=== PATIENT | female | born 1940 | race Caucasian/White ===

== ENCOUNTER 2017-07-22 10:57 | Inpatient (IN) | payer OTHER ==
[~2017-07-22] VITALS: Ht 157.5 cm; Wt 120.3 kg
[~2017-07-22 10:57] MED LIST: COLACE100 MG PO; COUMADIN 5 MG TA5 MG PO; JOINT FLEX PO; MACROBID100 MG PO; MIRALAX17 GM PO; MYCOSTATIN POWD15 GM TOP; NAMENDA10 MG PO; NATURAL IRON65 MG PO; PERCOCET 325 MG1 TA2 PO; SENNA-PLUS 50 M1 TAB PO
--- NOTE | 2017-07-22 11:41 | ED DYSPNEA/ASTHMA COMPLAINT ---
History of Present Illness General Chief Complaint: Dyspnea (COPD, CHF, Other) Stated Complaint: SOB,BACK PAIN,SWOLLE LEGS/FEET Triage Note: PT TO ED WITH C/O SOB AND SWOLLEN "MORE THAN NORMAL", PER FAMILY UNABLE TO PUT PT'S SHOES ON TODAY "HAD APPT WITH DR GONZALEZ TODAY, UNABLE TO MAKE IT". EKG DONE PRIOR TO TRIAGE. (Kiesha WADDELL,Eryn) General Source: patient, family Exam Limitations: clinical condition Vital Signs & Intake/Output Vital Signs & Intake/Output Vital Signs Date Time Temp Pulse Resp B/P B/P Pulse O2 O2 Flow FiO2 Mean Ox Delivery Rate 07/23 0549 97.8 92 20 128/76 93 Nasal 2.0L Cannula 07/23 0245 82 20 132/72 93 Nasal 2.0L Cannula 07/22 2307 97.8 99 22 120/65 91 Nasal 4.0L Cannula 07/22 2307 96 Room Air 07/22 1654 98.2 79 20 131/85 97 07/22 1401 97.2 88 20 110/62 98 Room Air 07/22 1329 99 Room Air 07/22 1116 96.7 94 24 104/61 99 Room Air Room Air ED Intake and Output 07/23 0000 07/22 1200 Intake Total 300 Output Total Balance 300 Intake, Oral 300 Patient 260 lb Weight Weight Reported by Patient Measurement Method Allergies Coded Allergies: No Known Allergies (07/22/17) Reconcile Medications Memantine HCl (Namenda) 10 MG TABLET 1 TAB PO BID DEMENTIA (Reported) Triage Nurses Notes Reviewed? yes Onset: Last week Duration: day(s): Severity: moderate Activities at Onset: none Prior Episodes/Possible Cause: no prior episodes, unknown cause Modifying Factors: Worsens With: movement. Associated Symptoms: cough, edema HPI: 76yoF w/ hx of OA and memory loss here with new onset dyspnea and leg swelling. According to patient, in the past 3days, she had been having difficulty with exertion. She runs out of breath when she ambulates a few feet. Prior to this, she has been having gradual swelling of her legs. She is now using a wheel chair for ambulation. At baseline, she had no issues with exertion and abulation. This is associated with new non-productive cough. She denies any trauma, hx of COPD, lung or cardiac issues in the past. She also denies N/V, fevers, chills or wheezing. Her only medication is Memantidine. She was otherwise independent with intact ADLs, living alone. She's had knee surgery in the past but she's able to ambulate She also endorses mild back pain which she attributes to sitting in the wheel chair. (Pool Salazar) Past History Travel History Traveled to [place] past 21 day No Medical History Neurological: Alzheimer's disease EENT: NONE Cardiovascular: NONE Respiratory: NONE Gastrointestinal: NONE Hepatic: NONE Renal: urinary incontinence Musculoskeletal: degen joint disease, osteoarthritis Psychiatric: NONE Endocrine: NONE Blood Disorders: NONE Cancer(s): NONE CLINICAL NURSING COORDINATOR/Reproductive: NONE History of MRSA: No History of VRE: No History of CDIFF: No Influenza Vaccine: 03/05/15 Surgical History Surgical History: non-contributory Psychosocial History Who do you live with Spouse Services at Home None What is your primary language Kazakh Tobacco Use: Never used ETOH Use: denies use Illicit Drug Use: denies illicit drug use Family History Hx Contributory? No (Eryn Pop MD) Travel History Traveled to [place] past 21 day No Medical History Any Pertinent Medical History? see below for history Neurological: dementia EENT: NONE Cardiovascular: NONE Respiratory: NONE Gastrointestinal: NONE Hepatic: NONE Renal: NONE Psychiatric: NONE Endocrine: NONE Surgical History Surgical History: non-contributory (Pool Salazar) Review of Systems Review of Systems GI: Denies: abdominal pain. Hematologic/Endocrine: Denies: bruising, bleeding. Immunologic/Allergic: Denies: splenectomy. (Eryn Pop MD) Review of Systems Constitutional: Reports: see HPI, weakness. EENTM: Reports: no symptoms. Respiratory: Reports: no symptoms. Cardiovascular: Reports: no symptoms. Genitourinary: Reports: no symptoms. Musculoskeletal: Reports: see HPI. Skin: Reports: no symptoms. Neurological/Psychological: Reports: no symptoms. (Subha STUDENTPool) Physical Exam Physical Exam General Appearance: moderate distress, obese Ears, Nose, Throat: normal pharynx, hearing grossly normal Peripheral Pulses: 2+ radial (R), 2+ radial (L) Rectal: heme negative stool Extremities: 2+ BILATERAL PITTING EDEMA Core Measures ACS in differential dx? Yes CVA/TIA Diagnosis No Sepsis Present: No Sepsis Focused Exam Completed? No (Eryn Pop MD) Physical Exam General Appearance: well developed/nourished, alert, awake, anxious, mild distress Head: atraumatic Eyes: Bilateral: PERRL, EOMI. Neck: normal inspection, supple Respiratory: decreased breath sounds Cardiovascular: regular rate/rhythm, normal peripheral pulses Gastrointestinal: normal bowel sounds, soft Extremities: pedal edema Neurologic/Psych: awake, alert, oriented x 3, normal mood/affect Skin: intact (Opare-Lashay STUDENT,Pool) Progress Differential Diagnosis: AMI, unstable angina, DIASTOLIC DYSFUNCTION Diagnostic Imaging: Viewed by Me: Radiology Read, Ultrasound. Discussed w/RAD: Radiology Read, Ultrasound. CXR Impression: PATIENT: LOIS LOCO PRESENT AGE: 76 PATIENT ACCOUNT NO: [id number] : 38 LOCATION: [facility] ORDERING PHYSICIAN: Eryn Pop MD SERVICE DATE: 07/22/17-1212 EXAM TYPE: RAD - XRY -PORTABLE CHEST XRAY EXAMINATION: XR PORTABLE CHEST CLINICAL INFORMATION: 76- year-old female patient with dyspnea on exertion. COMPARISON: Portable chest x- ray on 04/18/2015. (Normal). TECHNIQUE: Portable AP semierect view of the chest was obtained. FINDINGS: No significant abnormality is noted involving the heart, lungs, mediastinum, bony thorax or soft tissues. IMPRESSION: No evidence of congestive heart failure. DICTATED BY: Rj Alcantar MD DATE/TIME DICTATED: 07/22/171337 VENEER TRIMMER:KIANNA DATE/TIME TRANSCRIBED:07/22/171337 CONFIDENTIAL, DO NOT COPY WITHOUT APPROPRIATE AUTHORIZATION. <Electronically signed in Other Vendor System> SIGNED BY: Rj Alcantar MD 07/22/17 1343 Hand-Off Endorsed To: Darío Zarate MD Endorsed Time: 1600 Pending: other (V/Q), ultrasound (Eryn Pop MD) Differential Diagnosis: asthma, CHF, COPD, pulmonary embolism, pneumonia Plan of Care: Orders Procedure Date/time Status Regular Diet 07/23 B Active PARTIAL THROMBOPLASTIN TIME 07/23 1630 Active Change service to 07/23 0754 Active TROPONIN LEVEL 07/23 0600 Complete CBC WITHOUT DIFFERENTIAL 07/23 0600 Complete BASIC ELECTROLYTES PLUS BUN&CR 07/23 0600 Complete EKG 07/23 0600 Active EKG 07/23 0410 Active PARTIAL THROMBOPLASTIN TIME 07/23 0400 Complete EKG 07/23 0000 Active US-RENAL/KIDNEY 07/23 UNK Active ECHOCARDIOGRAM 07/23 UNK Active Pathway - chart 07/22 2258 Active Pathway - chart 07/22 224 Active House Staff 07/22 224 Active Code Status 07/22 2249 Active Add-on Test (ER Only) 07/22 221 Active EKG 07/22 2216 Active Intake & Output 07/22 221 Active PARTIAL THROMBOPLASTIN TIME 07/22 2158 Complete Patient Data 07/22 1937 Active Misc Message 07/22 1823 Active ED Holding Orders 07/22 1823 Active Admit to inpatient 07/22 1823 Active Vital Signs 07/22 1823 Active Code Status 07/22 1823 Complete Telemetry/Training Intern 07/22 1212 Active URINALYSIS 07/22 1212 Complete THYROID STIMULATING HORMONE 07/22 1212 Complete TROPONIN LEVEL 07/22 1212 Complete PARTIAL THROMBOPLASTIN TIME 07/22 1212 Complete PROTHROMBIN TIME 07/22 1212 Complete FREE T4 07/22 1212 Complete D-DIMER 07/22 1212 Complete COMPREHENSIVE METABOLIC PANEL 07/22 1212 Complete CBC WITHOUT DIFFERENTIAL 07/22 1212 Complete B-TYPE NATRIURETIC PEP (BNP) 07/22 1212 Complete EKG 07/22 1059 Active Current Medications Sig/Idalia Start time Last Medication Dose Stop Time Status Admin Memantine 10 MG BID 07/23 1000 AC 07/23 (Namenda) 0915 Acetaminophen 650 MG Q6P PRN 07/22 2300 AC (Tylenol) Acetaminophen 1,000 MG Q6P PRN 07/22 2300 AC (Ofirmev) Clotrimazole 1 TAYLA BID 07/22 2254 AC 07/23 (Lotrimin) 0915 Heparin Sodium 25,000 UNIT Q24H 07/22 1430 AC 07/22 (Porcine) 1656 (Heparin) Sodium Chloride 500 ML Laboratory Tests 07/23/17 0430: Anion Gap 10, Estimated GFR 40 L, BUN/Creatinine Ratio 23.1, Troponin I 0.25 *H , APTT 67 H, CBC w Diff NO MAN DIFF REQ, RBC 4.44, MCV 85.9, MCH 28.1, MCHC 32.7 L, RDW 13.5, MPV 8.7, Gran % 65.8, Lymphocytes % 26.3, Monocytes % 4.7, Eosinophils % 2.4, Basophils % 0.8, Absolute Granulocytes 7.2 H, Absolute Lymphocytes 2.9, Absolute Monocytes 0.5, Absolute Eosinophils 0.3, Absolute Basophils 0.1 07/23/17 0000: Troponin I Cancelled 07/22/17 2305: Urine Color YEL, Urine Clarity HAZY H, Urine pH 5.5, Ur Specific Polk >= 1.030, Urine Protein TRACE H, Urine Ketones TRACE H, Urine Nitrite POS H, Urine Bilirubin NEG, Urine Urobilinogen 0.2, Ur Leukocyte Esterase SMALL H, Ur Microscopic SEDIMENT EXAMINED, Urine RBC RARE, Urine WBC 10-15 H, Ur Epithelial Cells MANY H, Urine Bacteria PACKD H, Urine Mucus FEW, Urine Hemoglobin NEG, Urine Glucose NEG 07/22/17 2200: APTT 84 H 07/22/17 1308: Anion Gap 11, Estimated GFR 34 L, BUN/Creatinine Ratio 19.3, Glucose 98, Calcium 9.9, Total Bilirubin 0.6, AST 13 L, ALT 16, Alkaline Phosphatase 94, Troponin I 0.32 *H, Yhh-D-Kmeabvndnie Pept 03060 H, Total Protein 7.0, Albumin 3.8, Globulin 3.2, Albumin/Globulin Ratio 1.2, TSH 2.630, Free T4 1.76, PT 11.5, INR 1.10, APTT 31, D-Dimer High Sensitivty 2233 H, CBC w Diff MAN DIFF ORDERED, RBC 4.48, MCV 85.3, MCH 28.8, MCHC 33.8, RDW 12.9, MPV 8.3, Gran % 85.3 H, Lymphocytes % 9.2 L, Monocytes % 4.6, Eosinophils % 0.2, Basophils % 0.7, Absolute Granulocytes 10.1 H, Absolute Lymphocytes 1.1 L, Absolute Monocytes 0.5, Absolute Eosinophils 0, Absolute Basophils 0.1, Normocytic RBCs VERIFIED, Normochromic RBCs VERIFIED IV HEPARIN STARTED. ELEVATED TROPONIN, POSSIBLE PE. PENDING V/Q SCAN. WILL NEED ADMISSION TO TELEMETRY. (Kiesha WADDELL,Eryn) Patient with new onset dyspnea and leg swelling. dDx includes but not limited to CHF, COPD, thyroid, PE or liver or renal pathology. Work up will include EKG, BNP, CMP, CBC, TSH, INR, trops, dimer, urinalysis and CXR. 2:45PM Patient a little agitated complaining of leg pain. She is more short of breath and beginning to have inc WOB but satting above 96% on RA D-dimer, BNP and trops elevated and so considering to empirically start heparin therapy for presumed PE. Guaiac negative. Avoiding CT angio because elevated Cr and poor GFR. V/Q scan ordered in the interim. Morphine for pain Keep monitoring closely Initial ED EKG: normal axis, normal intervals, normal p-waves, low voltage (Opare-Lashay STUDENT,Pool) Initial ED EKG: low voltage Comments: 07/22/2017 4:54:47 PM patient signed out to me by Dr. Pop at shift change analyst. 07/22/2017 5:26:[address] Leon, radiologist,pts v/q reveals high prob. multiple upper and LLL defects. 07/22/2017 5:54:26 PM I have updated Lois and her family on test results. 07/22/2017 5:58:16 PM patient's case discussed with Dr. Goff, fish dressing machine feeder, who feels that the elevated troponin level is likely a reflection of the multiple pulmonary emboli. He recommends trending the troponin and an echocardiogram tomorrow. He agrees with heparinization for the multiple pulmonary emboli. (Tessa WADDELL,Darío May) Departure Departure Disposition: STILL A PATIENT Condition: Stable Referrals: Elaina WADDELL,Malcolm Crain (PCP/Family) Departure Forms: Customer Survey General Discharge Information Resident Co-Sign Statement Statement: ED Attending supervision documentation- [X] I saw and evaluated the patient. I have also reviewed all the pertinent lab results and diagnostic results. I agree with the findings and the plan of care as documented in the Resident's documentation. [X] I have reviewed the ED Record and agree with the Resident's documentation. [] Additions or exceptions (if any) to the Resident's note and plan are summarized below: [] (Kiesha WADDELL,Eryn) Departure Clinical Impression Primary Impression: Pulmonary emboli Qualifiers: Pulmonary embolism type: other Chronicity: acute Acute cor pulmonale presence: with acute cor pulmonale Qualified Code: I26.09 - Other pulmonary embolism with acute cor pulmonale Secondary Impressions: Elevated troponin Admission Note Spoke With: Alicia Nava MD Documentation of Exam: Documentation of any treatments & extenuating circumstances including Concerns Regarding Discharge (functional status, medication knowledge or non-compliance, living conditions, etc.) that warrant an admission rather than observation: Patient is currently suffering multiple pulmonary emboli and an elevated troponin. As a consequence of this patient has experienced shortness of breath and exertional dyspnea making her very poor candidate for outpatient management. I feel that if this were attempted, her dyspnea would be exacerbated and the exertion could potentially worsen her clinical condition. In addition to the respiratory complications, the exertion of outpatient treatment could also worse and her cardiac functioning, precipitating chest pain. I feel she now requires hospitalization for continuous cardiac monitoring for the possibility of ischemia associated dysrhythmias along with serial troponin determinations and consideration of cardiology consultation. In addition this patient requires acute heparinization followed by the initiation of an oral anticoagulant. The reason for this patient's multiple pulmonary emboli should also be pursued and treated accordingly. Hematology/oncology or vascular consultations should also be considered. This patient may also require short-term rehabilitation given the impact on her cardiovascular reserves and therefore physical therapy evaluation should be considered. I feel she will require a multiple day hospitalization. (Tessa WADDELL,Darío May) Critical Care Note Critical Care Note Critical Care Time: 30-74 min (Eryn Pop MD) Critical Care Note Critical Care Time: 30-74 min (Darío Zarate MD)
[2017-07-22] MEDS ORDERED: NAMENDA10 M2 PO (12:31)
[2017-07-22 13:19] LABS: ABSOLUTE BASOPHIL COUNT 0.1 /CUMM (0.0-0.2); ABSOLUTE EOSINOPHIL COUNT 0 /CUMM (0.0-0.7); ABSOLUTE GRANULOCYTE CT 10.1 /CUMM (1.4-6.5); ABSOLUTE LYMPH COUNT 1.1 /CUMM (1.2-3.4); ABSOLUTE MONOCYTE COUNT 0.5 /CUMM (0.10-0.60); BASOPHIL % 0.7 % (0.0-2.0); EOSINOPHIL % 0.2 % (0-5); GRANULOCYTE % 85.3 % (42.2-75.2); HEMATOCRIT 38.2 % (37-47); MEAN CORPUSCULAR HGB 28.8 PG (27.0-31.0); MEAN CORPUSCULAR HGB CONC 33.8 G/DL (33.0-37.0); MEAN CORPUSCULAR VOLUME 85.3 FL (81.0-99.0); MEAN PLATELET VOLUME 8.3 FL (7.4-10.4); PLATELET COUNT 220 /CUMM (130-400); RBC DISTRIBUTION WIDTH 12.9 % (11.5-14.5); RED BLOOD CELL CT 4.48 /CUMM (4.20-5.40); WHITE BLOOD CELL COUNT 11.8 /CUMM (4.8-10.8)
[2017-07-22 13:32] LABS: PT 11.5 SEC (9.4-12.5); PTT 31 SEC (25-37)
--- NOTE | 2017-07-22 13:43 | RADIOLOGY REPORT ---
EXAMINATION: XR PORTABLE CHEST CLINICAL INFORMATION: 76-year-old female patient with dyspnea on exertion. COMPARISON: Portable chest x-ray on 04/18/2015. (Normal). TECHNIQUE: Portable AP semierect view of the chest was obtained. FINDINGS: No significant abnormality is noted involving the heart, lungs, mediastinum, bony thorax or soft tissues. IMPRESSION: No evidence of congestive heart failure.
--- NOTE | 2017-07-22 16:21 | ULTRASOUND REPORT ---
EXAMINATION: US TRIPLEX OF LOWER EXTREMITIES, BILATERAL CLINICAL INFORMATION: Bilateral lower extremity edema. COMPARISON: None TECHNIQUE: Color-flow triplex imaging with spectral analysis and compression Doppler were performed on the lower extremities. FINDINGS: Respiratory variation, normal compression and augmented flow are noted throughout the lower extremities. The visualized common femoral vein, superficial femoral vein, profunda femoral vein, popliteal vein and midcalf peroneal and posterior tibial venous segments show no evidence of deep venous thrombosis. There is no Arriaga's cyst. IMPRESSION: Normal triplex scan without evidence of deep venous thrombosis involving the lower extremities.
--- NOTE | 2017-07-22 17:26 | NUCLEAR MEDICINE REPORT ---
EXAMINATION: PULMONARY VENTILATION PERFUSION STUDY CLINICAL INFORMATION: Shortness of breath with exertion, hypoxia, elevated d-dimer COMPARISON: No previous lung scan is available for comparison. A chest radiograph dated 07/22/2017, the same date as this lung scan, is available for comparison. TECHNIQUE: Serial gamma scintillation camera images were obtained over the posterior chest during the single breath, equilibrium rebreathing and washout of 19.3 mCi Xe 133 gas. The patient then received 3.4 mCi Tc-99m MAA intravenously and a 6-view perfusion study was performed. FINDINGS: Ventilation images: On the single breath and equilibrium images there is homogeneous distribution of gas bilaterally. During the washout phase there is no abnormal retention. Perfusion images: There is a segmental perfusion defect involving the apical segment of the right upper lobe with additional perfusion defects involving the anterior and posterior segments of the right upper lobe with almost absent perfusion to the anterior segment also. There is an additional subsegmental perfusion defect in the left upper lobe probably in the anterior segment and additional perfusion abnormalities are present in the lingula. There is also probably a segmental perfusion defect involving the anterior segment of the left lower lobe. These perfusion abnormalities are not well matched by any ventilation lower radiographic abnormalities. IMPRESSION: High probability of pulmonary embolism.
[2017-07-22 22:56] LABS: PTT 84 SEC (25-37)
--- NOTE | 2017-07-22 22:58 | History & Physical ---
KushFannie 07/22/17 2213: General Information and HPI MD Statement: I have seen and personally examined DEDRA LOCO and documented this H&P. The patient is a 76 year old F who presented with a patient stated chief complaint of [dyspnea on exertion]. Source of Information: patient, family Exam Limitations: no limitations History of Present Illness: This is a very pleasant 12-rtsv-ryfpjpzozwl obese woman who came to the emergency room complaining of shortness of breath. 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 Lives alone; she spends most of her day sitting in her recliner and according to patient at her baseline her ambulation is limited to less than a few meters and uses walker. According to patient about 3 days ago patient developed retrosternal, pleuritic, constant chest pain, without radiation to his arms or back and was associated with shortness of breath (mainly exertional); at her baseline she had bilateral lower extremity swelling and today patient noticed worsening of her bilateral lower extremity swelling. Patient denies any cough, hemoptysis, dizziness, GI/ symptoms, recent trauma to her lower extremities, any major change to her level of activity. Allergies/Medications Allergies: Coded Allergies: No Known Allergies (07/22/17) Home Med list Memantine HCl (Namenda) 10 MG TABLET 1 TAB PO BID DEMENTIA (Reported) Compliance With Home Meds: GOOD Past History Travel History Traveled to [place] past 21 day No Medical History Neurological: dementia EENT: NONE Cardiovascular: NONE Respiratory: NONE Gastrointestinal: NONE Hepatic: NONE Renal: NONE Musculoskeletal: degen joint disease, osteoarthritis Psychiatric: NONE Endocrine: NONE Blood Disorders: NONE Cancer(s): NONE HEDGE FUND PRINCIPAL/Reproductive: NONE History of MRSA: No History of VRE: No History of CDIFF: No Influenza Vaccine: 03/05/15 Surgical History Surgical History: non-contributory Past Family/Social History Psychosocial History Who Do You Live With? spouse Services at Home: None Primary Language: Estonian ETOH Use: denies use Illicit Drug Use: denies illicit drug use Functional Ability ADLs Independent: eating. Needs Assist: dressing. Unknown: toileting, bathing. Ambulation: walker Review of Systems Review of Systems Constitutional: Reports: see HPI. Cardiovascular: Reports: no symptoms. Respiratory: Reports: see HPI, short of breath. Denies: hemoptysis, orthopnea, sputum production, stridor, wheezing. GI: Reports: no symptoms. Genitourinary: Reports: no symptoms. Musculoskeletal: Reports: no symptoms. All Other Systems: Reviewed and Negative Exam & Diagnostic Data Last 24 Hrs of Vital Signs/I&O Vital Signs Date Time Temp Pulse Resp B/P B/P Pulse O2 O2 Flow FiO2 Mean Ox Delivery Rate 07/22 1654 98.2 79 20 131/85 97 07/22 1401 97.2 88 20 110/62 98 Room Air 07/22 1329 99 Room Air 07/22 1116 96.7 94 24 104/61 99 Room Air Room Air Intake & Output 07/22 1600 07/22 0800 07/22 0000 Intake Total Output Total Balance Patient 260 lb Weight Weight Reported by Patient Measurement Method Physical Exam General Appearance Alert, Oriented X3, Cooperative, Mild Distress Skin No Rashes Skin Temp/Moisture Exam: Warm/Dry HEENT MM is dry Neck Supple, No JVD, No thryomegaly, No LAD Lymphatic Axillary nl, Cervical nl Cardiovascular Normal S1, Normal S2, No Murmurs Lungs Clear to Auscultation, Normal Air Movement Abdomen Soft Neurological Normal Speech, Normal Tone Extremities +3 B/L pitting pedal edema Last 24 Hrs of Labs/Vidal: Laboratory Tests 07/22/17 2200: APTT Pending 07/22/17 1308: Anion Gap 11, Estimated GFR 34 L, BUN/Creatinine Ratio 19.3, Glucose 98, Calcium 9.9, Total Bilirubin 0.6, AST 13 L, ALT 16, Alkaline Phosphatase 94, Troponin I 0.32 *H, Qls-B-Lmdvbzbxmdr Pept 87026 H, Total Protein 7.0, Albumin 3.8, Globulin 3.2, Albumin/Globulin Ratio 1.2, TSH 2.630, Free T4 1.76, PT 11.5, INR 1.10, APTT 31, D-Dimer High Sensitivty 2233 H, CBC w Diff MAN DIFF ORDERED, RBC 4.48, MCV 85.3, MCH 28.8, MCHC 33.8, RDW 12.9, MPV 8.3, Gran % 85.3 H, Lymphocytes % 9.2 L, Monocytes % 4.6, Eosinophils % 0.2, Basophils % 0.7, Absolute Granulocytes 10.1 H, Absolute Lymphocytes 1.1 L, Absolute Monocytes 0.5, Absolute Eosinophils 0, Absolute Basophils 0.1, Normocytic RBCs VERIFIED, Normochromic RBCs VERIFIED Diagnostic Data CXR Results Normal Other Results VQ scan:anterior and posterior segments of the right upper lobe with almost absent perfusion to the anterior segment also. Highly possible PE Assessment/Plan Assessment: This is a 76-year-old morbidly obese woman with very limited ambulation and considerable Wells score presented was admitted for provoked segmental submassive pulmonary embolism; with presumably not-correctable cause. Doppler study of the lower extremities were negative for DVT ProBNP 10,600 First set of troponin 0.32 PESI score 2% chance of complication of pulmonary embolism RV/LV ratio is not available ?? Size of pulmonary artery ??? Guiac is negative List of differential diagnosis #1 provoked segmental submassive pulmonary embolism: In the setting of probable pulmonary embolism with a reversible cause chest guidelines 2017 recommends 3 months of anticoagulation. In the case of Mr. Herbert, however, her major risk factor for developing pulmonary embolism (im mobility) seems to be almost permenant, which may or may not require lifetime commitment to anticoagulation with either AVK or NOAC ( preferred). #2 worsening kidney function #3 baseline dementia #4 +/- underlying heart failure #5 superficial skin fungal infection Plan * Admit to telemetry for continuous heart monitoring * Continue heparin drip * Place cardiology consult with Dr. Hunter's group in the a.m. * Obtain echo * Any troponin and EKG rule out ACS * Hold Lasix * Nystatin powder for groin * Clotrimazole 1% twice a day on breast rash possible fungal infection * Renal ultrasound to rule out obstruction and measuring the kidney size and structure * Chem panel and CBC in the a.m. Heparin drip for anticoagulation Proper pain management FC As Ranked By This Provider Problem List: 1. Pulmonary emboli Qualifiers Pulmonary embolism type: other Chronicity: acute Acute cor pulmonale presence: with acute cor pulmonale Qualified Code: I26.09 - Other pulmonary embolism with acute cor pulmonale 2. Elevated troponin Core Measures/Misc (02/08) Acute Coronary Syndrome ACS Diagnosis: No Congestive Heart Failure Congestive Heart Failure Diagnosis No Cerebrovascular Accident CVA/TIA Diagnosis: No VTE (View Protocol) VTE Risk Factors Acute Medical Illness No Mechanical VTE Prophylaxis d/t Other No VTE Pharm Prophylaxis d/t NA PharmProphylax ordered Sepsis (View protocol) Sepsis Present: No Alicia Nava 07/23/17 0426: Attending MD Review Statement Attending Statement Attending MD Statement: examined this patient, discuss w/resident/PA/INDUSTRIAL ILLUMINATING ENGINEER, agreed w/resident/PA/INDUSTRIAL ILLUMINATING ENGINEER, discussed with family, reviewed EMR data (avail), reviewed images, amended to note Attending Assessment/Plan: CC: Shortness of breath PMH: Bilateral knee surgery, chronic knee pain, ? mild Dementia Patient came to ER for 4 to 5 day history of shortness of breath and leg swelling. According to the patient she does not walk much, most of the time, because of her chronic knee pain. Since last 3-4 days she noticed that she was getting more short of breath on exertion, substernal chest pain. Pain was mild, nonradiating, currently resolved. Her shortness of breath was progressively worsened to the level that she could not even walk a few steps. When her daughter came to check on her today, she noticed that her legs are swollen. Patient denies any fever, chills, cough, expectoration, hemoptysis, nausea, vomiting, headache, dizziness, passing out, palpitations. Her activity is limited and does not endorse any chest pain or dyspnea on exertion prior to this symptoms started. Other than chronic knee pain and mild dementia patient does not have any other symptoms. She is independent for ADLs Vitals: Afebrile, pulse in 80s, RR 24 on arrival improved to 20, blood pressure 104/61 on arrival improved to 131/85, saturating 99% on room air On exam: A O 3, cooperative, cognition intact, no acute distress, neck supple, JVD normal, no lymphadenopathy, mucosa dry, no focal neurological deficit, significant bilateral lower extremity edema, fungal rash on inguinal an inframammary folds CVS: S1-S2, RRR. RS: Clear to auscultate bilaterally. Abdomen : Soft, NT, ND, bowel sounds present. Rectal examination done, guaiac negative CXR: No evidence of congestive heart failure. DVT Doppler bilateral lower extremity: Normal triplex scan without evidence of deep venous thrombosis involving the lower extremities. Lung VQ scan: High probability of pulmonary embolism. Assessment and plan 76-year-old female with no significant past medical history except mild dementia , currently on Namenda and decreased level of activity since last 2 years, secondary to chronic knee pain presented in ER for substernal chest pain, dyspnea on exertion, bilateral lower extremity swelling since last 3-4 days, gradually worsened to the extent that she could not walk a few steps without getting short of breath. Currently patient does not have any chest pain. On examination auscultation was clear, no JVD but she has significant bilateral lower extremity edema, patient is obese and has fungal rash in inguinal an inframammary folds. Vitals were stable except mild tachypnea on arrival but labs showed mild left shift, elevated troponin, elevated proBNP, elevated d-dimer. Patient's creatinine is 1.5 and last available is 0.6 in March 2015. It's unclear whether patient has acute kidney injury or progressive CKD, she does not appear to have multiple comorbidities like hypertension, diabetes or any other chronic ailments for CKD. Given her elevated creatinine, VQ scan obtained which showed high probability of pulmonary embolism. Patient's elevated troponin could be secondary to cardiac strain secondary to PE, elevated proBNP could be secondary to similar reasons but given her extent of leg edema chronic heart failure should be ruled out. + Pulmonary embolism + Elevated troponin : Probably secondary to pulmonary embolism and cardiac strain + Suspected chronic heart failure + History of mild dementia - Admit to telemetry - Continuous telemetry monitoring - Serial troponin and ECG - Continue O2 by nasal cannula - Obtain 2-D echocardiogram in a.m. - Continue IV heparin - Cardiology consult : Patient's daughter requests Dr. Hunter's group - Renal ultrasound for elevated creatinine acute kidney injury versus chronic kidney disease - Strict I's and O's - Daily weights - Patient would benefit from diuresis once hemodynamically stable for pulmonary embolism - I called the patient's daughter Drea to discuss clinical findings, plan, and CODE STATUS: full code, as suggested by patient.
--- NOTE | 2017-07-23 04:28 | Admission Certification ---
Admission Certification Certification Statement - As attending physician, I certify that at the time of - admission, based on clinical presentation, severity of - symptoms, need for further diagnostic testing and - therapeutic interventions, and risk of adverse outcomes - without in-hospital treatment, in my clinical assessment, - this patient requires an acute hospital stay for a minimum - of two nights or longer. I have also considered psychsocial - factors such as support system, advanced age, financial - issues, cognitive issues, and failed out-patient treatments, - past re-admission history, safety of patient, and lack of - compliance as applicable. Specific rationale supporting this admission is: pulmonary embolism
[2017-07-23 04:40] LABS: ABSOLUTE BASOPHIL COUNT 0.1 /CUMM (0.0-0.2); ABSOLUTE EOSINOPHIL COUNT 0.3 /CUMM (0.0-0.7); ABSOLUTE GRANULOCYTE CT 7.2 /CUMM (1.4-6.5); ABSOLUTE LYMPH COUNT 2.9 /CUMM (1.2-3.4); ABSOLUTE MONOCYTE COUNT 0.5 /CUMM (0.10-0.60); BASOPHIL % 0.8 % (0.0-2.0); EOSINOPHIL % 2.4 % (0-5); GRANULOCYTE % 65.8 % (42.2-75.2); HEMATOCRIT 38.2 % (37-47); MEAN CORPUSCULAR HGB 28.1 PG (27.0-31.0); MEAN CORPUSCULAR HGB CONC 32.7 G/DL (33.0-37.0); MEAN CORPUSCULAR VOLUME 85.9 FL (81.0-99.0); MEAN PLATELET VOLUME 8.7 FL (7.4-10.4); PLATELET COUNT 215 /CUMM (130-400); RBC DISTRIBUTION WIDTH 13.5 % (11.5-14.5); RED BLOOD CELL CT 4.44 /CUMM (4.20-5.40); WHITE BLOOD CELL COUNT 10.9 /CUMM (4.8-10.8)
[2017-07-23 05:05] LABS: PTT 67 SEC (25-37)
--- NOTE | 2017-07-23 07:41 | Cons- Cardiology ---
General Information and HPI Consulting Request Date of Consult: 07/23/17 Requested By: Alicia Nava MD Reason for Consult: Pulmonary embolus Source of Information: patient, family Exam Limitations: patient's age, poor historian History of Present Illness: This is a very pleasant 55-[id number]-hcmehfjwwvn obese woman who came to the emergency room complaining of shortness of breath. 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 Lives alone; she spends most of her day sitting in her recliner and according to patient at her baseline her ambulation is limited to less than a few meters and uses walker. According to patient about 3 days ago patient developed retrosternal, pleuritic, constant chest pain, without radiation to his arms or back and was associated with shortness of breath (mainly exertional); at her baseline she had bilateral lower extremity swelling and today patient noticed worsening of her bilateral lower extremity swelling. Patient denies any cough, hemoptysis, dizziness, GI/ symptoms, recent trauma to her lower extremities, any major change to her level of activity. The above information was obtained by the admitting resident. Patient admits to more usual shortness of breath lately even though functional activities extremity limited. Because of increased shortness of breath unusual activities and some swelling of the leg that she perceived she decided to come to the emergency room. She denies any history of diabetes hypertension or hyperlipidemia. She admits to arthritis having bilateral knee replacements. Due to a mild stroke under anesthesia several years ago she sees a neurologist. Allergies/Medications Allergies: Coded Allergies: No Known Allergies (07/22/17) Home Med List: Memantine HCl (Namenda) 10 MG TABLET 1 TAB PO BID DEMENTIA (Reported) Current Medications: Current Medications Sig/[place] Start time Last Medication Dose Route Stop Time Status Admin Acetaminophen 650 MG Q6P PRN 07/22 2300 AC PO Acetaminophen 1,000 MG Q6P PRN 07/22 2300 AC IV Clotrimazole 1 TAYLA BID 07/22 2254 AC 07/23 TOP 0000 Heparin Sodium 0 .STK-MED ONE 07/22 1457 DC (Porcine) .ROUTE Heparin Sodium 5,000 UNIT ONCE ONE 07/22 1430 DC 07/22 (Porcine) IV 07/22 1431 1656 Heparin Sodium 25,000 UNIT Q24H 07/22 1430 AC 07/22 (Porcine) IV 1656 Sodium Chloride 500 ML Morphine Sulfate 0 .STK-MED ONE 07/22 1456 DC .ROUTE Morphine Sulfate 2 MG ONCE ONE 07/22 1445 DC 07/22 IV 07/22 1446 1458 Review of Systems Review of Systems Constitutional: Reports: see HPI. EENTM: Denies: no symptoms. Cardiovascular: Reports: see HPI. Respiratory: Reports: see HPI. GI: Denies: no symptoms. Genitourinary: Denies: no symptoms. Musculoskeletal: Denies: no symptoms. Skin: Denies: no symptoms. Neurological/Psychological: Denies: no symptoms. Hematologic/Endocrine: Denies: no symptoms. Past History Travel History Traveled to [place] past 21 day No Medical History Neurological: dementia EENT: NONE Cardiovascular: NONE Respiratory: NONE Gastrointestinal: NONE Hepatic: NONE Renal: NONE Musculoskeletal: degen joint disease, osteoarthritis Psychiatric: NONE Endocrine: NONE Blood Disorders: NONE Cancer(s): NONE SURVEY COMPILER/Reproductive: NONE Other Medical Hx: Morbid obesity Surgical History Surgical History: non-contributory Psychosocial History Who Do You Live With? spouse Services at Home: None Primary Language: Faroese ETOH Use: denies use Illicit Drug Use: denies illicit drug use Functional Ability ADLs Independent: eating. Needs Assist: dressing. Unknown: toileting, bathing. Ambulation: walker Exam & Diagnostic Data Vital Signs and I&O Vital Signs Date Time Temp Pulse Resp B/P B/P Pulse O2 O2 Flow FiO2 Mean Ox Delivery Rate 07/23 0549 97.8 92 20 128/76 93 Nasal 2.0L Cannula 07/23 0245 82 20 132/72 93 Nasal 2.0L Cannula 07/22 2306 97.8 99 22 120/65 91 Nasal 4.0L Cannula 07/22 2307 96 Room Air 07/22 1654 98.2 79 20 131/85 97 07/22 1401 97.2 88 20 110/62 98 Room Air 07/22 1329 99 Room Air 07/22 1116 96.7 94 24 104/61 99 Room Air Room Air Intake & Output 07/23 0800 07/23 0000 07/22 1600 07/22 0807/22 0000 02/27 1600 Intake Total 300 Output Total Balance 300 Intake, Oral 300 Patient 260 lb Weight Weight Reported by Patient Measurement Method Physical Exam: Patient appeared comfortable in bed somewhat anxious. Head normocephalic atraumatic Eyes sclera anicteric conjunctiva showed no pallor extraocular muscles were normal neck no jugular venous distention no thyroid masses no palpable nodes. Chest lungs were clear bilaterally Heart regular rhythm. P2 appeared louder than A2. Grade 1 to 2/6 ejection systolic murmur in the pulmonic area. Abdomen hugely protuberant bowel sounds normal nontender no organomegaly scar previous surgery Extremities bilateral leg edema and trace edema. No clubbing or cyanosis Neurological no gross motor or sensory deficits Labs/Vidal Results: Laboratory Tests 07/23 07/23 0430 0000 Chemistry Sodium (137 - 145 mmol/L) 142 Potassium (3.5 - 5.1 mmol/L) 4.6 Chloride (98 - 107 mmol/L) 110 H Carbon Dioxide (22 - 30 mmol/L) 22 Anion Gap (5 - 16) 10 BUN (7 - 17 mg/dL) 30 H Creatinine (0.5 - 1.0 mg/dL) 1.3 H Estimated GFR (>60 ml/min) 40 L BUN/Creatinine Ratio (7 - 25 %) 23.1 Troponin I (< 0.11 ng/ml) 0.25 *H Cancelled Coagulation APTT (25 - 37 SEC) 67 H Hematology CBC w Diff NO MAN DIFF REQ WBC (4.8 - 10.8 /CUMM) 10.9 H RBC (4.20 - 5.40 /CUMM) 4.44 Hgb (12.0 - 16.0 G/DL) 12.5 Hct (37 - 47 %) 38.2 MCV (81.0 - 99.0 FL) 85.9 MCH (27.0 - 31.0 PG) 28.1 MCHC (33.0 - 37.0 G/DL) 32.7 L RDW (11.5 - 14.5 %) 13.5 Plt Count (130 - 400 /CUMM) 215 MPV (7.4 - 10.4 FL) 8.7 Gran % (42.2 - 75.2 %) 65.8 Lymphocytes % (20.5 - 51.1 %) 26.3 Monocytes % (1.7 - 9.3 %) 4.7 Eosinophils % (0 - 5 %) 2.4 Basophils % (0.0 - 2.0 %) 0.8 Absolute Granulocytes (1.4 - 6.5 /CUMM) 7.2 H Absolute Lymphocytes (1.2 - 3.4 /CUMM) 2.9 Absolute Monocytes (0.10 - 0.60 /CUMM) 0.5 Absolute Eosinophils (0.0 - 0.7 /CUMM) 0.3 Absolute Basophils (0.0 - 0.2 /CUMM) 0.1 07/22 07/22 2305 2200 Coagulation APTT (25 - 37 SEC) 84 H Urines Urine Color (YEL,AMB,STR) YEL Urine Clarity (CLEAR) HAZY H Urine pH (5.0 - 8.0) 5.5 Ur Specific [place] (1.001 - 1.035) >= 1.030 Urine Protein (NEG,<30 MG/DL) TRACE H Urine Ketones (NEG) TRACE H Urine Nitrite (NEG) POS H Urine Bilirubin (NEG) NEG Urine Urobilinogen (0.1 - 1.0 EU/dl) 0.2 Ur Leukocyte Esterase (NEG) SMALL H Ur Microscopic SEDIMENT EXAMINED Urine RBC (0 - 5 /HPF) RARE Urine WBC (0 - 2 /HPF) 10-15 H Ur Epithelial Cells (NONE,FEW) MANY H Urine Bacteria (NEG/NONE) PACKD H Urine Mucus (FEW,NONE) FEW Urine Hemoglobin (NEG) NEG Urine Glucose (N MG/DL) NEG 07/22 1308 Chemistry Sodium (137 - 145 mmol/L) 141 Potassium (3.5 - 5.1 mmol/L) 4.7 Chloride (98 - 107 mmol/L) 108 H Carbon Dioxide (22 - 30 mmol/L) 22 Anion Gap (5 - 16) 11 BUN (7 - 17 mg/dL) 29 H Creatinine (0.5 - 1.0 mg/dL) 1.5 H Estimated GFR (>60 ml/min) 34 L BUN/Creatinine Ratio (7 - 25 %) 19.3 Glucose (65 - 99 mg/dL) 98 Calcium (8.4 - 10.2 mg/dL) 9.9 Total Bilirubin (0.2 - 1.3 mg/dL) 0.6 AST (14 - 36 U/L) 13 L ALT (9 - 52 U/L) 16 Alkaline Phosphatase (<127 U/L) 94 Troponin I (< 0.11 ng/ml) 0.32 *H [id number] Pept (<125 pg/mL) 33903 H Total Protein (6.3 - 8.2 g/dL) 7.0 Albumin (3.5 - 5.0 g/dL) 3.8 Globulin (1.9 - 4.2 gm/dL) 3.2 Albumin/Globulin Ratio (1.1 - 2.2 %) 1.2 TSH (0.270 - 4.200 uIU/mL) 2.630 Free T4 (0.78 - 2.44 ng/dL) 1.76 Coagulation PT (9.4 - 12.5 SEC) 11.5 INR (0.90 - 1.19) 1.10 APTT (25 - 37 SEC) 31 D-Dimer High Sensitivty (0 - 243 ng/ml) 2233 H Hematology CBC w Diff MAN DIFF ORDERED WBC (4.8 - 10.8 /CUMM) 11.8 H RBC (4.20 - 5.40 /CUMM) 4.48 Hgb (12.0 - 16.0 G/DL) 12.9 Hct (37 - 47 %) 38.2 MCV (81.0 - 99.0 FL) 85.3 MCH (27.0 - 31.0 PG) 28.8 MCHC (33.0 - 37.0 G/DL) 33.8 RDW (11.5 - 14.5 %) 12.9 Plt Count (130 - 400 /CUMM) 220 MPV (7.4 - 10.4 FL) 8.3 Gran % (42.2 - 75.2 %) 85.3 H Lymphocytes % (20.5 - 51.1 %) 9.2 L Monocytes % (1.7 - 9.3 %) 4.6 Eosinophils % (0 - 5 %) 0.2 Basophils % (0.0 - 2.0 %) 0.7 Absolute Granulocytes (1.4 - 6.5 /CUMM) 10.1 H Absolute Lymphocytes (1.2 - 3.4 /CUMM) 1.1 L Absolute Monocytes (0.10 - 0.60 /CUMM) 0.5 Absolute Eosinophils (0.0 - 0.7 /CUMM) 0 Absolute Basophils (0.0 - 0.2 /CUMM) 0.1 Normocytic RBCs VERIFIED Normochromic RBCs VERIFIED Diagnostic Data EKG Results EKG #1 sinus tachycardia with early transition and precordial T-wave changes CONSISTENT with right heart strain CXR Results No evidence of congestive heart failure. Other Results VQ scanHigh probability of pulmonary embolism. Venous Doppler ultrasound lower extremities negative for thrombus Assessment/Plan Assessment/Plan In summary this 76-year-old female was admitted with the following problems #1. Shortness of breath in spite of very limited functional activity superimposed on limited functional activity and accompanied by pedal edema. Diagnosis of pulmonary embolism has been made from VQ scan. EKG and clinical evaluation consistent with diagnosis of pulmonary embolism. Positive troponin and positive BNP is also consistent with pulmonary embolism. She is on IV heparin and appears comfortable with stable sats and stable vital signs. Predisposition factor for pulmonary embolism his morbid obesity most likely. #2. 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 Arthritis with bilateral knee replacement Would suggest obtaining an echocardiogram to document pulmonary hypertension. No change in current treatment as patient appears hemodynamically stable. Continue IV heparin and transitioned to novel anticoagulants would be the most likely choice. She does have mild renal insufficiency but in view of her morbid obesity it might make the initiation of warfarin quite inconvenient for the patient to follow as an outpatient. However if renal functions remained unstable and deteriorating warfarin would be the drug of choice. Consult Acknowledgment - Thank you for your consult request.
--- NOTE | 2017-07-23 07:54 | PN- Housestaff ---
Soumya WADDELL,[place] 07/23/17 0753: Subjective Follow-up For: Subsegmental PE Right heart strain with elevated troponin and ProBNP Dementia Subjective: Seen and examined Appears comfortable. She could not recall the reason for hospitalization. Reports she feels sick in her throat and requested lozenges. she did report increase in leg edema lately. Review of Systems Constitutional: Reports: see HPI. Objective Last 24 Hrs of Vital Signs/I&O Vital Signs Date Time Temp Pulse Resp B/P B/P Pulse O2 O2 Flow FiO2 Mean Ox Delivery Rate 07/23 0549 97.8 92 20 128/76 93 Nasal 2.0L Cannula 07/23 0245 82 20 132/72 93 Nasal 2.0L Cannula 07/22 2307 97.8 99 22 120/65 91 Nasal 4.0L Cannula 07/22 2307 96 Room Air 07/22 1654 98.2 79 20 131/85 97 07/22 1401 97.2 88 20 110/62 98 Room Air 07/22 1329 99 Room Air 07/22 1116 96.7 94 24 104/61 99 Room Air Room Air Intake & Output 07/23 0800 07/23 0000 07/22 1600 Intake Total 300 Output Total Balance 300 Intake, Oral 300 Patient 117.934 kg Weight Weight Reported by Patient Measurement Method Physical Exam General Appearance: Alert, Cooperative, No Acute Distress Skin: No Rashes HEENT: Atraumatic, PERRLA Neck: Supple, No JVD Cardiovascular: Normal S1, Normal S2 Lungs: Clear to Auscultation, Normal Air Movement Abdomen: Normal Bowel Sounds, Soft, No Tenderness Neurological: Strength at 5/5 X4 Ext, Normal Tone, Sensation Intact Extremities: No Clubbing, No Cyanosis, 4+ edema right >> left Vascular: Normal Pulses Current Medications: Current Medications Sig/Idalia Start time Last Medication Dose Route Stop Time Status Admin Acetaminophen 650 MG Q6P PRN 07/22 2300 AC PO Acetaminophen 1,000 MG Q6P PRN 07/22 2300 AC IV Apixaban 10 MG BID 07/23 1258 AC 07/23 PO 1345 Clotrimazole 1 TAYLA BID 07/22 2254 AC 07/23 TOP 0915 Heparin Sodium 25,000 UNIT Q24H 07/22 1430 DC 07/22 (Porcine) IV 1656 Sodium Chloride 500 ML Memantine 10 MG BID 07/23 1000 AC 07/23 PO 0915 Last 24 Hrs of Lab/Vidal Results Last 24 Hrs of Labs/Mics: Laboratory Tests 07/23/17 0430: Anion Gap 10, Estimated GFR 40 L, BUN/Creatinine Ratio 23.1, Troponin I 0.25 *H , APTT 67 H, CBC w Diff NO MAN DIFF REQ, RBC 4.44, MCV 85.9, MCH 28.1, MCHC 32.7 L, RDW 13.5, MPV 8.7, Gran % 65.8, Lymphocytes % 26.3, Monocytes % 4.7, Eosinophils % 2.4, Basophils % 0.8, Absolute Granulocytes 7.2 H, Absolute Lymphocytes 2.9, Absolute Monocytes 0.5, Absolute Eosinophils 0.3, Absolute Basophils 0.1 07/23/17 0000: Troponin I Cancelled 07/22/17 2305: Urine Color YEL, Urine Clarity HAZY H, Urine pH 5.5, Ur Specific [place] >= 1.030, Urine Protein TRACE H, Urine Ketones TRACE H, Urine Nitrite POS H, Urine Bilirubin NEG, Urine Urobilinogen 0.2, Ur Leukocyte Esterase SMALL H, Ur Microscopic SEDIMENT EXAMINED, Urine RBC RARE, Urine WBC 10-15 H, Ur Epithelial Cells MANY H, Urine Bacteria PACKD H, Urine Mucus FEW, Urine Hemoglobin NEG, Urine Glucose NEG 07/22/17 2200: APTT 84 H Assessment/Plan Assessment: Patient is a Morbidly obese 76 YO F with PMH notable for DJD of knee limiting her mobility, Dementia presented with pleuritic chest pain, dyspnea. VS stable. PE is significant for morbid obesity, 4+ pitting edema Right >> left, fungal rash in intermammary area. Labs did show mild left shift, elevated troponin 0.32 -->0.25, elevated proBNP 11K, elevated d-dimer. Cr 1.5--> 1.3 (baseline 0.6). VQ scan did show high probability of PE. Admitted to [facility] given elevated troponin, ProBNP along with PE. Problem list Pulmonary embolism Right heart strain as evidenced with elevated troponin, ProBNP, EKG changes Fungal skin infection Dementia by history Plan Pulmonary embolus with likely right heart strain Patient was morbidly obese with limited ambulation. As venous doppler ruled out DVT of the lower extremities, optimal evaluation of reason behind her PE is prudent. She needs further evaluation of any underlying malignancy, hypercoagulable work up in near future. she was started on IV hepain. * Transition to NOAC. started on eliquis (CrCl <30 so cannot get Xarelto) * Apixaban 10mg BID for 7days followed by 5mg BID for the next 6months * ECHO for evaluation of pulm HTN given elevated trop with ekg changes, elevated ProBNP. * Cardio consulted for further guidance on edema/PE work up DJD requiring knee replacement by history PT eval to understand baseline mobility and safe discharge planning Dementia Continue Nemanda DVT prophylaxis On eliquis Code status Full code Problem List: 1. Elevated troponin 2. Pulmonary emboli 3. Dyspnea on exertion 4. Morbid obesity Pain Ratin Pain Location: n/a Pain Goal: Pain 4 or less Pain Plan: tylenol Tomorrow's Labs & Rationales: cbc to monitor platelets while on IV heparin bep to monitor renal function Nina WADDELL,Cady 07/23/17 1343: Attending MD Review Statement Attending Statement Attending MD Statement: examined this patient, discuss w/resident/PA/OPEN CLAIMS REPRESENTATIVE, agreed w/resident/PA/OPEN CLAIMS REPRESENTATIVE, reviewed EMR data (avail), discussed with nursing, discussed with case mgmt, amended to note Attending Assessment/Plan: Patient seen and examined. Lying comfortably in bed not in any acute distress. Denies shortness of breath or chest pain. Denies palpitations. She is hemodynamically stable. Saturating 94% on 2 L of oxygen. On examination she is not in any respiratory distress. She has no jugular venous distention. Heart sounds are regular. She has adequate air entry bilaterally with no added sounds. She has 1+ bilateral pedal edema. Recommendations: -Transition to oral anticoagulation therapy with Eliquis. -Patient will require age-appropriate cancer screening as an outpatient upon discharge. -Follow-up echocardiogram for further workup of her renal insufficiency. Kidney function were within normal in the past however last labs were performed 2014. -Her elevated troponins are likely secondary to demand ischemia from her pulmonary embolism. Follow-up echocardiogram. Telemetry monitoring for the next 24 hours.
[2017-07-23 11:01] VITALS: BP 142/70
--- NOTE | 2017-07-23 13:53 | ULTRASOUND REPORT ---
EXAMINATION: US RETROPERITONEAL COMPLETE (RENAL) CLINICAL INFORMATION: Chronic kidney disease. Increasing creatinine. COMPARISON: None TECHNIQUE: Real-time imaging of the kidneys and bladder. FINDINGS: RIGHT KIDNEY: 8.4 x 3.7 x 3.5 cm (SAG x AP x TRV). There is limited evaluation of the kidneys due to the patient's body habitus and overlying bowel gas. There is mild to moderate cortical thinning. No definite focal lesions are identified, however as mentioned, visualization is very limited. LEFT KIDNEY: 9.9 x 5.8 x 3.7 cm (SAG x AP x TRV). There is limited evaluation of the kidneys due to the patient's body habitus and overlying bowel gas. There is mild to moderate cortical thinning, similar to the right kidney. No definite focal lesions are identified, however as mentioned, visualization is very limited. Renal cortical thickness is normal. No calculi or focal parenchymal lesions. No hydronephrosis. BLADDER: Partially distended. Bilateral ureteral jets are not demonstrated. Prevoid bladder volume is 98.3 mL. IMPRESSION: Markedly limited evaluation due to patient's body habitus and overlying bowel gas. Bilateral mild to moderate cortical thinning is symmetric. The kidneys appear small in size, however measurements are difficult due to shadowing from the overlying bowel gas. The right kidney may be asymmetrically smaller than the left.
--- NOTE | 2017-07-23 14:33 | Patient Discharge Instructions ---
Discharge Instructions General Discharge Information You were seen/treated for: submassive Pulmonary embolus Special Instructions: Please follow up with your PCP in a week Please follow up with your Analytics Manager in a week Please consider outpatient work up for screening Diet Recommended Diet: Heart Healthy Activity Activity Self Limited: Yes Acute Coronary Syndrome Inclusion Criteria At DC or during hospital stay patient has or had the following: ACS DIAGNOSIS No Discharge Core Measures Meds if any: Prescribed or Continued at Discharge Meds if any: NOT Prescribed or Continued at Discharge Congestive Heart Failure Inclusion Criteria At DC or during hospital stay patient has or had the following: CHF DIAGNOSIS No Discharge Core Measures Meds if any: Prescribed or Continued at Discharge Meds if any: NOT Prescribed or Continued at Discharge Cerebrovascular accident Inclusion Criteria At DC or during hospital stay patient has or had the following: CVA/TIA Diagnosis No Discharge Core Measures Meds if any: Prescribed or Continued at Discharge Meds if any: NOT Prescribed or Continued at Discharge Venous thromboembolism Inclusion Criteria VTE Diagnosis No VTE Type NONE VTE Confirmed by (Test) NONE Discharge Core Measures - Per Current guidelines, there needs to be overlap - treatment for the first 5 days of Warfarin therapy. - If discharged on Warfarin prior to 5 days of - overlap therapy, the patient will need to be - assessed for post discharge needs including - *Post discharge parental anticoagulation - *Warfarin and/or parental anticoagulation education - *Follow up date to check INR post discharge At least 5 days overlap therapy as Inpatient No Meds if any: Prescribed or Continued at Discharge Note: Overlap Therapy is Warfarin and Anticoagulant Meds if any: NOT Prescribed or Continued at Discharge
[2017-07-23 16:43] VITALS: BP 132/70
[2017-07-23 22:24] VITALS: BP 138/70
[2017-07-24 07:01] VITALS: BP 104/58
--- NOTE | 2017-07-24 07:31 | PN- Housestaff ---
Soumya WADDELL,[place] 07/24/17 0730: Subjective Follow-up For: Subsegmental PE Right heart strain with elevated troponin and ProBNP Dementia Subjective: Seen and examined at bedside. Patient reports feeling better. Denies any overnight issues/concerns. Currently free of pain. Daughter at bedside - answered all the questions. Review of Systems Constitutional: Reports: see HPI. Comments: ROS negative except the above Objective Last 24 Hrs of Vital Signs/I&O Vital Signs Date Time Temp Pulse Resp B/P B/P Pulse O2 O2 Flow FiO2 Mean Ox Delivery Rate 07/24 0701 98.2 93 16 104/58 94 Nasal Cannula 07/24 0000 Nasal 2.0L Cannula 07/23 2224 138/70 07/23 2222 98.6 97 16 92 Nasal Cannula 07/23 1643 97.5 64 14 132/70 91 Nasal Cannula 07/23 1600 90 Nasal 2.0L Cannula 07/23 1600 90 Nasal 2.0L Cannula 07/23 1412 98.7 84 19 136/72 95 Nasal 2.0L Cannula 07/23 1101 98.2 94 20 142/70 94 Nasal 2.0L Cannula 07/23 1059 98.2 94 20 142/70 94 Nasal 2.0L Cannula Intake & Output 07/24 0800 07/24 0000 07/23 1600 Intake Total Output Total Balance Patient 120.287 kg 119.04 kg Weight Weight Bed scale Bed scale Measurement Method Physical Exam General Appearance: Alert, Cooperative Skin: No Rashes, intermammary rash HEENT: Atraumatic, PERRLA Neck: Supple Cardiovascular: Normal S1, Normal S2, loud P2 component Lungs: Normal Air Movement Abdomen: Normal Bowel Sounds, Soft, No Tenderness Neurological: Normal Tone, Sensation Intact Extremities: No Clubbing, No Cyanosis, 3+ pitting edema Current Medications: Current Medications Sig/Idalia Start time Last Medication Dose Route Stop Time Status Admin Acetaminophen 650 MG Q6P PRN 07/22 2300 DCD PO Acetaminophen 1,000 MG Q6P PRN 07/22 2300 DCD IV Apixaban 10 MG BID 07/23 1258 DCD 07/24 PO 1021 Bisacodyl 5 MG DAILY 07/25 1000 DC PO Bisacodyl 5 MG DAILY 07/24 1715 DCD 07/24 PO 1709 Bisacodyl 10 MG ONCE PRN 07/24 1445 DC 07/24 CA 1653 Clotrimazole 1 TAYLA BID 07/22 2254 DCD 07/24 TOP 1117 Memantine 10 MG BID 07/23 1000 DCD 07/24 PO 1021 Nystatin 1 TAYLA BID PRN 07/24 0400 DCD TOP Patient Medication 1 ED ONE ONE 07/24 1530 DC 07/24 Teaching ED 07/24 1531 1545 Polyethylene Glycol 17 GM DAILY 07/24 1431 DCD 07/24 PO 1544 Last 24 Hrs of Lab/Vidal Results Last 24 Hrs of Labs/Mics: Laboratory Tests 07/24/17 0637: Anion Gap 9, Estimated GFR 43 L, BUN/Creatinine Ratio 20.0, CBC w Diff NO MAN DIFF REQ, RBC 3.66 L, MCV 85.5, MCH 29.1, MCHC 34.1, RDW 13.7, MPV 8.8, Gran % 61.5, Lymphocytes % 28.4, Monocytes % 6.6, Eosinophils % 2.9, Basophils % 0.6, Absolute Granulocytes 5.3, Absolute Lymphocytes 2.4, Absolute Monocytes 0.6, Absolute Eosinophils 0.2, Absolute Basophils 0.1 Assessment/Plan Assessment: Patient is a Morbidly obese 76 YO F with PMH notable for DJD of knee limiting her mobility, Dementia presented with pleuritic chest pain, dyspnea. VS stable. PE is significant for morbid obesity, 4+ pitting edema Right >> left, fungal rash in intermammary area. Labs did show mild left shift, elevated troponin 0.32 -->0.25, elevated proBNP 11K, elevated d-dimer. Cr 1.5--> 1.3 (baseline 0.6). VQ scan did show high probability of PE. Admitted to tele given elevated troponin, ProBNP along with PE. Problem list Pulmonary embolism Right heart strain as evidenced with elevated troponin, ProBNP, EKG changes Fungal skin infection Dementia by history Plan Pulmonary embolus with likely right heart strain Patient was morbidly obese with limited ambulation. As venous doppler ruled out DVT of the lower extremities, optimal evaluation of reason behind her PE is prudent. She needs further evaluation of any underlying malignancy, hypercoagulable work up in near future. she was started on IV hepain. * Started on eliquis 10mg BID for 7days followed by 5mg BID for atleast 6months * ECHO did show significant elevation in pulm artery pressures. DJD requiring knee replacement by history PT duniaal suggested Rehab Dementia Continue Nemanda DVT prophylaxis On eliquis Code status Full code Problem List: 1. Pulmonary emboli 2. Elevated troponin 3. Dyspnea on exertion Pain Ratin Pain Location: leg Pain Goal: Pain 4 or less Pain Plan: tylenol Tomorrow's Labs & Rationales: none Nina WADDELL,Cady 07/24/17 1208: Attending MD Review Statement Attending Statement Attending MD Statement: examined this patient, discuss w/resident/PA/TILE MOLDER HAND, agreed w/resident/PA/TILE MOLDER HAND, reviewed EMR data (avail), discussed with nursing, discussed with case mgmt, amended to note Attending Assessment/Plan: Patient seen and examined. Resting comfortably not in any acute distress. No issues overnight reported by nursing staff. She denies chest pain or shortness of breath. Denies palpitations. Continues to have difficulty with ambulation. Daughter reports that at baseline mobility is very limited due to her weight. On examination heart sounds are regular. She has mild wheezing bilaterally. Abdomen is obese soft and nontender with normal bowel sounds. Problems: 1. Acute pulmonary embolism. 2. Pulmonary hypertension. 3. Possible underlying COPD; she will need to follow-up with the pulmonology service as an outpatient for PFTs. 4. Moderate tricuspid regurgitation. Recommendations: -Continue oral anticoagulation therapy. -Patient is medically stable to be discharged today however she will need fdc facility for short-term rehabilitation due to her deconditioning. Physical therapy consultation has been placed. -As an outpatient she will need to follow-up with her primary care provider for age-appropriate cancer screening. Daughter reports that patient has not followed up with her primary care provider as she should. Patient has not had a mammogram, colonoscopy or gynecological evaluation. -Cardiac enzymes are trending downwards. Likely secondary to demand ischemia. Echocardiogram shows normal ejection fraction and no focal wall motion abnormality. She does have elevated pulmonary pressures of 60 mmHg. She also has moderate tricuspid regurgitation. Recommend cardiology follow-up as an outpatient to determine need for further ischemic workup and further management of her tricuspid regurgitation. -Begin patient on bronchodilator therapy with albuterol 4 times a day. Patient should be referred to a enrollment nurse service as an outpatient for further workup of her pulmonary hypertension and pulmonary function testing to determine if she does have underlying COPD in light of her symptoms and previous history of smoking.
[2017-07-24 08:04] LABS: ABSOLUTE BASOPHIL COUNT 0.1 /CUMM (0.0-0.2); ABSOLUTE EOSINOPHIL COUNT 0.2 /CUMM (0.0-0.7); ABSOLUTE GRANULOCYTE CT 5.3 /CUMM (1.4-6.5); ABSOLUTE MONOCYTE COUNT 0.6 /CUMM (0.10-0.60); EOSINOPHIL % 2.9 % (0-5); MEAN PLATELET VOLUME 8.8 FL (7.4-10.4); RED BLOOD CELL CT 3.66 /CUMM (4.20-5.40)
[2017-07-24 08:38] LABS: ABSOLUTE LYMPH COUNT 2.4 /CUMM (1.2-3.4); BASOPHIL % 0.6 % (0.0-2.0); GRANULOCYTE % 61.5 % (42.2-75.2); MEAN CORPUSCULAR HGB 29.1 PG (27.0-31.0); MEAN CORPUSCULAR HGB CONC 34.1 G/DL (33.0-37.0); MEAN CORPUSCULAR VOLUME 85.5 FL (81.0-99.0); PLATELET COUNT 189 /CUMM (130-400); RBC DISTRIBUTION WIDTH 13.7 % (11.5-14.5); WHITE BLOOD CELL COUNT 8.6 /CUMM (4.8-10.8)
[2017-07-24 09:01] LABS: HEMATOCRIT 31.3 % (37-47)
--- NOTE | 2017-07-24 10:55 | PN- Cardiology ---
Subjective Subjective: The patient is awake, alert The events of the last 24 hours as well as telemetry were reviewed. Review of Systems: The review of systems is negative for chest pains, palpitations nor lightheadedness. The remainder of the 14 point review of systems is noncontributory with the exception of above. Objective Vital Signs and I&Os Vital Signs Date Time Temp Pulse Resp B/P B/P Pulse O2 O2 Flow FiO2 Mean Ox Delivery Rate 07/24 0910 Nasal 2.0L Cannula 07/24 0701 98.2 93 16 104/58 94 Nasal Cannula 07/24 0000 Nasal 2.0L Cannula 07/23 2224 138/70 07/23 2222 98.6 97 16 92 Nasal Cannula 07/23 1643 97.5 64 14 132/70 91 Nasal Cannula 07/23 1600 90 Nasal 2.0L Cannula 07/23 1600 90 Nasal 2.0L Cannula 07/23 1412 98.7 84 19 136/72 95 Nasal 2.0L Cannula 07/23 1101 98.2 94 20 142/70 94 Nasal 2.0L Cannula 07/23 1059 98.2 94 20 142/70 94 Nasal 2.0L Cannula Intake & Output 07/24 1600 07/24 0800 07/24 0000 07/23 1600 07/23 0800 07/23 0000 Intake Total 120 300 Output Total Balance 120 300 Intake, IV 20 Intake, Oral 100 300 Patient 265 lb 262 lb Weight Weight Bed scale Bed scale Measurement Method Physical Exam: General: Nontoxic, no apparent distress. HEENT: Sclera and conjunctiva within normal limits, without xanthelasmas. Neck: Carotids 2+ without bruits. Respiratory: Clear to auscultation, air movement is good, without accessory respiratory muscle use. Heart: Regular rate and rhythm, without murmurs, without JVD. Abdomen: Soft, nontender, no masses, normoactive bowel sounds. Extremities: Without clubbing, cyanosis. Neuro: Nonfocal exam, strength, 5 out of 5 Skin: Within normal limits without lesions. Psych: Mood and affect: Normal Current Medications: Current Medications Sig/Idalia Start time Last Medication Dose Route Stop Time Status Admin Acetaminophen 650 MG Q6P PRN 07/22 2300 AC PO Acetaminophen 1,000 MG Q6P PRN 07/22 2300 AC IV Apixaban 10 MG BID 07/23 1258 AC 07/24 PO 1021 Clotrimazole 1 TAYLA BID 07/22 2254 07/23 TOP 0915 Heparin Sodium 25,000 UNIT Q24H 07/22 1430 DC 07/22 (Porcine) IV 1656 Sodium Chloride 500 ML Influenza Virus 0.5 ML ONCE ONE 07/23 1745 [place] 07/23 Vaccine IM 07/23 1746 2103 Memantine 10 MG BID 07/23 1000 AC 07/24 PO 1021 Nystatin 1 TAYLA BID PRN 07/24 0400 [facility] Results Last 48 Hrs of Labs/Mics: Laboratory Tests 07/24/17 0637: Anion Gap 9, Estimated GFR 43 L, BUN/Creatinine Ratio 20.0, CBC w Diff NO MAN DIFF REQ, RBC 3.66 L, MCV 85.5, MCH 29.1, MCHC 34.1, RDW 13.7, MPV 8.8, Gran % 61.5, Lymphocytes % 28.4, Monocytes % 6.6, Eosinophils % 2.9, Basophils % 0.6, Absolute Granulocytes 5.3, Absolute Lymphocytes 2.4, Absolute Monocytes 0.6, Absolute Eosinophils 0.2, Absolute Basophils 0.1 07/23/17 0430: Anion Gap 10, Estimated GFR 40 L, BUN/Creatinine Ratio 23.1, Troponin I 0.25 *H , APTT 67 H, CBC w Diff NO MAN DIFF REQ, RBC 4.44, MCV 85.9, MCH 28.1, MCHC 32.7 L, RDW 13.5, MPV 8.7, Gran % 65.8, Lymphocytes % 26.3, Monocytes % 4.7, Eosinophils % 2.4, Basophils % 0.8, Absolute Granulocytes 7.2 H, Absolute Lymphocytes 2.9, Absolute Monocytes 0.5, Absolute Eosinophils 0.3, Absolute Basophils 0.1 07/23/17 0000: Troponin I Cancelled 07/22/17 2305: Urine Color YEL, Urine Clarity HAZY H, Urine pH 5.5, Ur Specific [place] >= 1.030, Urine Protein TRACE H, Urine Ketones TRACE H, Urine Nitrite POS H, Urine Bilirubin NEG, Urine Urobilinogen 0.2, Ur Leukocyte Esterase SMALL H, Ur Microscopic SEDIMENT EXAMINED, Urine RBC RARE, Urine WBC 10-15 H, Ur Epithelial Cells MANY H, Urine Bacteria PACKD H, Urine Mucus FEW, Urine Hemoglobin NEG, Urine Glucose NEG 07/22/17 2200: APTT 84 H 07/22/17 1308: Anion Gap 11, Estimated GFR 34 L, BUN/Creatinine Ratio 19.3, Glucose 98, Calcium 9.9, Total Bilirubin 0.6, AST 13 L, ALT 16, Alkaline Phosphatase 94, Troponin I 0.32 *H, Oog-U-Gtmcedqtnda Pept 46263 H, Total Protein 7.0, Albumin 3.8, Globulin 3.2, Albumin/Globulin Ratio 1.2, TSH 2.630, Free T4 1.76, PT 11.5, INR 1.10, APTT 31, D-Dimer High Sensitivty 2233 H, CBC w Diff MAN DIFF ORDERED, RBC 4.48, MCV 85.3, MCH 28.8, MCHC 33.8, RDW 12.9, MPV 8.3, Gran % 85.3 H, Lymphocytes % 9.2 L, Monocytes % 4.6, Eosinophils % 0.2, Basophils % 0.7, Absolute Granulocytes 10.1 H, Absolute Lymphocytes 1.1 L, Absolute Monocytes 0.5, Absolute Eosinophils 0, Absolute Basophils 0.1, Normocytic RBCs VERIFIED, Normochromic RBCs VERIFIED Assessment/Plan Assessment/Plan #1. pulmonary embolism. Positive troponin and positive BNP. on IV heparin #2. 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 Arthritis with bilateral knee replacement We will continue full anticoagulation with Eliquis. An echocardiogram will be obtained. This may be performed as an outpatient as well. Continue telemetry? Yes
--- NOTE | 2017-07-24 12:05 | ECHOCARDIOGRAM REPORT ---
DEDRA LOCO Age: 76 : 1940 Gender: F Exam Date: 07/23/2017 18:33 Exam Location: [address] Ht (in): 62 Wt (lb): 260 BSA: 2.34 BP: 128 / 76 Ordering Physician: Fannie Currie MD Referring Physician: Dylan Bravo MD Technologist: Eneida Nina [facility] Room Number: 175 Indications: HEART FAILURE Rhythm: Technical Quality: suboptimal FINDINGS Left Ventricle Normal LV chamber size, wall thickness and systolic function. The estimated LVEF is 60%. There are no focal wall motion abnormalities. Right Ventricle Moderately enlarged right ventricle with reduced systolic function Right Atrium Normal appearing right atrium Left Atrium Normal appearing left atrium Mitral Valve Mildly thickened and calcified mitral valve leaflets with normal leaflet opening. There is mild to moderate mitral regurgitation. Aortic Valve Trileaflet aortic valve with mild to moderate thickening and calcification. There is leaflet excursion, with no significant transvalvular gradient. Tricuspid Valve Grossly normal appearing tricuspid valve leaflets. There is moderate tricuspid regurgitation. The estimated PA systolic pressure is 60 mmHg Pulmonic Valve Suboptimally visualized; however, grossly normal pulmonic valve leaflets Pericardium Normal pericardium Great Vessels Normal great vessels CONCLUSIONS Normal LV chamber size, wall thickness and systolic function. The estimated LVEF is 60%. There are no focal wall motion abnormalities. There is mild to moderate mitral regurgitation. Trileaflet aortic valve with mild to moderate thickening and calcification. There is leaflet excursion, with no significant transvalvular gradient. Moderately enlarged right ventricle with reduced systolic function. Grossly normal appearing tricuspid valve leaflets. There is moderate tricuspid regurgitation. The estimated PA systolic pressure is 60 mmHg. Rafael Lawrence M.D. (Electronically Signed) Final Date: 24 July 2017 12:04 MEASUREMENTS (Male / Female) Normal Values 2D ECHO LV Diastolic Diameter PLAX 3.3 cm 4.2 - 5.9 / 3.9 - 5.3 cm LV Systolic Diameter PLAX 2.1 cm 2.1 - 4.0 cm LV Fractional Shortening PLAX 36.4 % 25 - 46 % LV Ejection Fraction 2D Teich 67.4 % IVS Diastolic Thickness 1.0 cm LVPW Diastolic Thickness 0.9 cm LV Relative Wall Thickness 0.6 RV Internal Dim ED PLAX 2.4 cm 1.9 - 3.8 cm LVOT Diameter 1.8 cm Aortic Root Diameter 2.7 cm LA Systolic Diameter LX 3.7 cm 3.0 - 4.0 / 2.7 - 3.8 cm LA Volume 35.0 cm 18 - 58 / 22 - 52 cm Ascending Aorta Diameter 2.8 cm DOPPLER AV Peak Velocity 196.0 cm/s AV Peak Gradient 15.4 mmHg AV Mean Velocity 134.0 cm/s AV Mean Gradient 9.0 mmHg AV Velocity Time Integral 25.8 cm LVOT Peak Velocity 91.2 cm/s LVOT Peak Gradient 3.3 mmHg LVOT Mean Velocity 63.1 cm/s LVOT Mean Gradient 2.0 mmHg LVOT Velocity Time Integral 16.3 cm LVOT Stroke Volume 41.5 cm AV Area Cont Eq vti 1.6 cm AV Area Cont Eq pk 1.2 cm MV Peak Velocity 85.7 cm/s MV Peak Gradient 2.9 mmHg MV Mean Velocity 54.0 cm/s MV Mean Gradient 1.0 mmHg Mitral E Point Velocity 45.9 cm/s Mitral A Point Velocity 66.6 cm/s Mitral E to A Ratio 0.7 MV PHT Velocity 70.6 cm/s MV Deceleration [place] 245.0 cm/s MV Pressure Half Time 86.4 ms MV Area PHT 2.5 cm MV Deceleration Time 164.0 ms TR Peak Velocity 360.0 cm/s TR Peak Gradient 51.8 mmHg Right Atrial Pressure 5.0 mmHg Pulmonary Artery Systolic Pressu 56.8 mmHg Right Ventricular Systolic Press 56.8 mmHg PV Peak Velocity 105.0 cm/s PV Peak Gradient 4.4 mmHg PV Mean Velocity 61.1 cm/s PV Mean Gradient 2.0 mmHg PV Velocity Time Integral 16.7 cm LV E' Lateral Velocity 9.3 cm/s Mitral E to LV E' Lateral Ratio 4.9 LV E' Septal Velocity 3.9 cm/s Mitral E to LV E' Septal Ratio 11.8
[2017-07-24 14:38] VITALS: BP 134/65
--- NOTE | 2017-07-24 16:16 | Discharge Summary ---
Visit Information Visit Dates Admission Date: 07/22/17 Discharge Date: 07/24/17 Hospital Course Course Attending Physician: Cady Wood MD Primary Care Physician: Elaina WADDELL,Malcolm Crain Hospital Course: Patient is a Morbidly obese 76 YO F with PMH notable for DJD of knee limiting her mobility, Dementia presented with pleuritic chest pain, dyspnea. VS stable. PE is significant for morbid obesity, 4+ pitting edema Right >> left, fungal rash in intermammary area. Labs did show mild left shift, elevated troponin 0.32 -->0.25, elevated proBNP 11K, elevated d-dimer. Cr 1.5--> 1.3 (baseline 0.6). VQ scan did show high probability of PE. Admitted to [facility] given elevated troponin, ProBNP likely from PE. Problem list Pulmonary embolism Right heart strain as evidenced with elevated troponin, ProBNP, EKG changes Fungal skin infection Dementia by history Plan Submassive Pulmonary embolus with right heart strain Patient is morbidly obese with limited ambulation. As venous doppler ruled out DVT of the lower extremities, optimal evaluation of reason behind her PE is prudent. She needs further evaluation of any underlying malignancy, hypercoagulable work up in near future. she was started on IV hepain which was transitioned to NOAC - eliquis 10mg BID for 7days followed by 5mg BID for atleast next 6 months. Given elevated troponin and ProBNP along with EKG changes secondary to PE, cardio consulted. Recommended to obtain ECHO and considered this is likely from PE. ECHO did show normal EF of 60 % with elevated PA systolic pressure of 60 mmHg. Moderately enlarged right ventricle with reduced systolic function. She merits outpatient follow up ECHO. DJD requiring knee replacement by history PT eval to understand baseline mobility and suggested short term rehab for safe discharge planning Dementia Continued Nemanda EDUIN on possible CKD Patient did have a Cr of 1.5 at admission. Received fluids and improved back to 1.2. GFR is <50 indicating role of chronic disease CKD - III. Consider follow up as outpatient. DVT prophylaxis On eliquis Code status Full code Complications: NONE Allergies: Coded Allergies: No Known Allergies (07/22/17) Significant Procedures: CXR at admission IMPRESSION: No evidence of congestive heart failure. VQ scan on 07/22/17 FINDINGS: Ventilation images: On the single breath and equilibrium images there is homogeneous distribution of gas bilaterally. During the washout phase there is no abnormal retention. Perfusion images: There is a segmental perfusion defect involving the apical segment of the right upper lobe with additional perfusion defects involving the anterior and posterior segments of the right upper lobe with almost absent perfusion to the anterior segment also. There is an additional subsegmental perfusion defect in the left upper lobe probably in the anterior segment and additional perfusion abnormalities are present in the lingula. There is also probably a segmental perfusion defect involving the anterior segment of the left lower lobe. These perfusion abnormalities are not well matched by any ventilation lower radiographic abnormalities. IMPRESSION: High probability of pulmonary embolism. ECHO on 07/24/17 CONCLUSIONS Normal LV chamber size, wall thickness and systolic function. The estimated LVEF is 60%. There are no focal wall motion abnormalities. There is mild to moderate mitral regurgitation. Trileaflet aortic valve with mild to moderate thickening and calcification. There is leaflet excursion, with no significant transvalvular gradient. Moderately enlarged right ventricle with reduced systolic function. Grossly normal appearing tricuspid valve leaflets. There is moderate tricuspid regurgitation. The estimated PA systolic pressure is 60 mmHg. Rafael Lawrence M.D. (Electronically Signed) Final Date: 24 July 2017 12:04 Venous doppler on 07/22/17 IMPRESSION: Normal triplex scan without evidence of deep venous thrombosis involving the lower extremities. Renal ultrasound 07/23/17 IMPRESSION: Markedly limited evaluation due to patient's body habitus and overlying bowel gas. Bilateral mild to moderate cortical thinning is symmetric. The kidneys appear small in size, however measurements are difficult due to shadowing from the overlying bowel gas. The right kidney may be asymmetrically smaller than the left. 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 Medications at Discharge Discharge Medications: Continue taking these medications: Memantine HCl (Namenda) 10 MG TABLET 1 Tablet ORAL TWICE DAILY Qty = 180 Comments: Last Taken: 07/24/17 Time: 10:21 am Start taking the following new medications: Apixaban (Eliquis) 5 MG TABLET 1 Tablet ORAL TWICE DAILY Qty = 60 No Refills Instructions: Please take 10mg twice a day (2 tabs twice) till 07/29/17 Please take 5mg twice a day (1 tab twice a day) from 07/30/17 for the next 6 months Comments: Last Taken: 07/24/17 Time: 10:20 am Copies To: Telly WADDELL,Dylan Coulter; Elaina WADDELL,Malcolm Wesley MD Review Statement Documenting Attending: Cady Wood MD Other Findings: Discharged in stable condition.
[2017-07-24] MEDS ORDERED: ELIQUIS5 M1 PO (16:18)
[2017-07-24 17:53] VITALS: BP 134/65
== END 2017-07-24 18:40 | DRG 176 ==
LOC: ERH 10:57 → 1NO 18:23 → ERHI 18:23 → ENRESERV 07-23 13:44 → ENTRNSPT 07-23 14:44 → EDTRNSPT 07-23 14:48 → EDTRNSPTSTS 07-23 14:48 → 1NO 07-23 15:15 → CMPTRNSPT 07-23 15:24 → ENPENDDIS 07-24 16:53 → 1NO 07-24 18:40
PROVIDERS: Emergency Medicine; Internal Medicine; Student in an Organized Health Care Education/Training Program
DX: I26.99 Other pulmonary embolism without acute cor pulmonale (principal); I27.29 Other secondary pulmonary hypertension; E66.01 Morbid (severe) obesity due to excess calories; F03.90 Unspecified dementia, unspecified severity, without behavioral disturbance, psychotic disturbance, mood disturbance, and anxiety; Z68.42 Body mass index [BMI] 45.0-49.9, adult; I07.1 Rheumatic tricuspid insufficiency; I51.9 Heart disease, unspecified; L08.89 Other specified local infections of the skin and subcutaneous tissue; Z96.653 Presence of artificial knee joint, bilateral
CPT/HCPCS: 1NP; ERO; 36592; 71045; 76775; 78582; 81001; 82436; 93005; 93010; 93306; 93970; 97110-GO; 97161-GP; 97530-GO; A9540; A9558; J1644; Q2036